=== PATIENT | male | born 1970 | race Caucasian/White ===

== ENCOUNTER 2018-12-10 17:58 | Emergency (ER) | payer OTHER ==
[~2018-12-10] VITALS: Ht 172.7 cm; Wt 74.8 kg
[2018-12-10] MEDS ORDERED: LISINOPRIL10 MG PO (18:13)
[2018-12-10] MEDS ORDERED: VERAPAMIL E.R240 M1 PO (18:13)
[2018-12-10] MEDS ORDERED: ASPIR 8181 MG PO (18:13)
[2018-12-10] MEDS ORDERED: GEMFIBROZIL 60600 MG PO (18:13)
[2018-12-10] MEDS ORDERED: FLOMAX0.4 MG PO (18:14)
[2018-12-10] MEDS ORDERED: ALPHA LIPOIC AC50 M1 PO (18:14)
[2018-12-10 19:04] LABS: ABSOLUTE EOSINOPHILS 0.1 thou/uL (0.0-0.7); ABSOLUTE MONOCYTES 0.7 thou/uL (0.0-1.2); ABSOLUTE NEUTROPHILS 3.3 thou/uL (1.6-8.1); BASOPHILS 0.6 %; EOSINOPHILS 1.1 %; HEMATOCRIT 43.6 % (42.0-52.0); HEMOGLOBIN 14.9 gm/dL (14.0-18.0); LYMPHOCYTES 32.7 %; MCH 31.1 pg (26.0-34.0); MCHC 34.1 g/dL (28.0-37.0); MCV 91.3 fL (80.0-100.0); MPV 9.6 fl. (7.2-11.1); NUCLEATED RBCS 0 /100WBC; PLATELET COUNT* 244 thou/uL (150-400); POLYS 53.6 %; RBC 4.78 mil/uL (4.50-6.00); RDW-CV 12.8 % (10.5-14.5); WBC 6.1 thou/uL (4.0-11.0)
[2018-12-10 19:12] LABS: ANION GAP 11 mmol/L (7-16); BUN 19 mg/dL (7-18); CALCIUM 9.2 mg/dL (8.5-10.1); CHLORIDE 101 mmol/L (98-107); CO2 26 mmol/L (21-32); CREATININE 0.8 mg/dL (0.6-1.3); GLUCOSE 106 mg/dL (70-99); POTASSIUM 3.4 mmol/L (3.5-5.1); SODIUM 138 mmol/L (136-145)
[2018-12-10 19:21] LABS: ALBUMIN 3.9 g/dL (3.4-5.0); ALKALINE PHOSPHATASE 72 U/L (46-116); SGOT 22 U/L (15-37); SGPT 28 U/L (30-65); TOTAL BILIRUBIN 0.6 mg/dL (<0.1-1.0); TOTAL PROTEIN 8.1 g/dL (6.4-8.2); TROPONIN-I LEVEL <0.06 ng/mL (<0.06); URIC ACID* 3.8 mg/dL (2.6-7.2)
[2018-12-10 19:32] LABS: URINE BLOOD NEGATIVE (Negative); URINE CLARITY CLEAR; URINE COLOR YELLOW; URINE GLUCOSE-RANDOM NEGATIVE (Negative); URINE KETONES NEGATIVE (Negative); URINE LEUKOCYTES-REFLEX NEGATIVE (Negative); URINE NITRITE-REFLEX NEGATIVE (Negative); URINE PROTEIN NEGATIVE (Negative); URINE SPECIFIC GRAVITY >= 1.030 (1.005-1.030)
[2018-12-10 19:33] LABS: ICTOTEST (BILI CONFIRMATORY) Negative (Negative); URINE BILIRUBIN 1+ (Negative)
[2018-12-10 19:41] LABS: AMP/METHAMP POSITIVE (Negative); BARBITURATES Negative (Negative); BENZODIAZEPINES Negative (Negative); COCAINE POSITIVE (Negative); METHADONE Negative (Negative); OPIATES Negative (Negative); PCP Negative (Negative); THC Negative (Negative)
[2018-12-10] MEDS ORDERED: IBUPROFEN 800800 MG PO (20:36)
[2018-12-10 20:55] VITALS: BP 114/69
--- NOTE | 2018-12-11 20:08 | EKG ---
[place] [address] ELECTROCARDIOGRAM REPORT Name: MANDY JACKSON JR Room: [facility]#: [id number] Admission: 12/10/18 Attend Phys: Discharge: 12/10/18 Date of : 70 Report #: [id number] THIS REPORT FOR: //name// [facility] ED Test Date: 2018-12-10 Test Time: 19:02:42 Pat Name: MANDY JACKSON Department: Room: Gender: M Time Buyer: KYRA : 1970 Requested By: [facility] [place] Order Number: [id number] MD: Arnold Lamar Measurements Intervals [place] Rate: 88 P: 79 HI: 144 QRS: -15 QRSD: 104 T: 25 QT: 370 QTc: 448 Interpretive Statements Sinus rhythm Borderline left axis deviation Baseline wander in lead(s) V3 No previous ECG available for comparison Electronically Signed On 12-11-2018 20:08:40 CDT by Arnold Lamar [email or web address] <ELECTRONICALLY SIGNED> By: Sky Lamar MD, [facility] 12/11/182007 01 01 [facility] MD, [facility] /EPI
== END 2018-12-10 20:56 | disposition home or self-care (01) ==
LOC: M.ERS 17:58
PROVIDERS: Nurse Practitioner Family
DX: F14.10 Cocaine abuse, uncomplicated (principal); F15.10 Other stimulant abuse, uncomplicated; M54.6 Pain in thoracic spine; F17.200 Nicotine dependence, unspecified, uncomplicated; I10 Essential (primary) hypertension